=== PATIENT | male | born 1955 | race Caucasian/White ===

== ENCOUNTER 2020-09-09 05:42 | Day surgery (SDC) | payer MEDICARE, OTHER ==
[2020-09-03 16:24] LABS: BASOPHILS # (AUTO) 0.1 X10'3 (0-0.2); EOSINOPHILS # (AUTO) 0.1 X10'3 (0-0.9); EOSINOPHILS % (AUTO) 1.5 % (0-6); LYMPHOCYTES # (AUTO) 1.9 X10'3 (1.1-4.8); MEAN CORPUSCULAR HEMOGLOBIN 33.2 PG (27.0-31.0); MEAN CORPUSCULAR VOLUME 97.7 FL (78-98); MEAN PLATELET VOLUME 7.6 FL (7.4-10.4); MONOCYTES # (AUTO) 0.9 X10'3 (0-0.9); NEUTROPHILS # (AUTO) 4.5 X10'3 (1.8-7.7); NEUTROPHILS % (AUTO) 60.5 % (42-75); PRE OP HEMATOCRIT 54.8 % (42.0-52.0); PRE OP PLATELET COUNT 262 X10'3 (140-440); RED BLOOD COUNT 5.62 X10'6 (4.70-6.10); RED CELL DISTRIBUTION WIDTH 14.5 % (11.5-14.5)
[2020-09-03 16:26] LABS: PRE OP HEMOGLOBIN 18.6 g/dL (14.0-17.9); PRE OP PROTIME 10.6 SECONDS (9.0-12.0)
[2020-09-03 16:29] LABS: ALBUMIN 3.9 G/DL (3.4-5.0); ALBUMIN/GLOBULIN RATIO 1.1 (1.1-1.5); ALKALINE PHOSPHATASE 71 IU/L (46-116); BLOOD UREA NITROGEN 14 MG/DL (7-18); BUN/CREATININE RATIO 16.5 (5.4-32.0); CALCIUM 8.9 MG/DL (8.5-10.1); CHLORIDE 104 MMOL/L (99-107); CREATININE 0.85 MG/DL (0.60-1.10); PRE OP ALT 25 U/L (30-65); PRE OP ANION GAP 7 (8-16); PRE OP AST 14 U/L (10-37); PRE OP BILIRUB, TOTAL 0.7 MG/DL (0.0-1.0); PRE OP GLUCOSE 95 MG/DL (70-104); PRE OP POTASSIUM 4.4 MMOL/L (3.4-5.1); PRE OP SODIUM 140 MMOL/L (135-145); TOTAL CARBON DIOXIDE 29.1 MMOL/L (24-32); TOTAL PROTEIN 7.6 G/DL (6.4-8.2); eGFR 90 ML/MIN
[2020-09-09] VITALS (19 sets, daily range): BP systolic 113–151; BP diastolic 76–99
[~2020-09-09] VITALS: Ht 182.9 cm; Wt 89.6 kg
[~2020-09-09 05:42] MED LIST: DOCUMENT DATE & TIME OF BETA-BLOCKER PO ONE; METO-384 PO; acetaminophen 325mg tablet PO ONE; cefazolin/dext.iso 2gm/100ml IV ONE; celeCOXIB 100mg capsule PO ONE; famotidine 20mg tablet PO ONE; gabapentin 300mg capsule PO ONE; metoclopramide 5 mg/ml inj IV ONE; oxyCODONE SR 10mg (sust. release) tab -2 tabs (20mg) PO ONE; ringers solution, lacted 1,000 ML IV SCH; tranexamic acid 1gm/0.7% sal. 100 ML IV ONE; vancomycin 1,500 MG in NS 300ml IV soln IV ONE
[2020-09-09] MEDS ORDERED: HYDROmorphone 1 mg/ml syringe IV PRN (06:25)
[2020-09-09] MEDS ORDERED: diphenhydrAMINE 25mg capsule PO PRN ×2 (06:25)
[2020-09-09] MEDS ORDERED: magnesium hydroxide 30ml (MOM) UD suspension PO PRN (06:25)
[2020-09-09] MEDS ORDERED: acetaminophen 325mg tablet PO PRN (06:25)
[2020-09-09] MEDS ORDERED: ondansetron/PF 4mg/2ml inj IV PRN ×2 (06:25→07:40)
[2020-09-09] MEDS ORDERED: bisacodyl 10mg suppository rectal RC PRN (06:25)
[2020-09-09] MEDS ORDERED: tranexamic acid inj. 900 MG in normal saline 100ml IV soln 100 ML IV ONE (06:25)
[2020-09-09] MEDS ORDERED: HYDROmorphone inj. 0.5 MG/0.5 ML DISP.SYRIN IV PRN (06:25)
[2020-09-09] MEDS ORDERED: oxyCODONE/APAP 10/325mg tablet PO PRN ×2 (06:25)
[2020-09-09] MEDS ORDERED: ketorolac trometh. 30mg/ml inj. ONE (06:45)
[2020-09-09] MEDS ORDERED: epiNEPHrine 1 mg/ml inj ONE (06:46)
[2020-09-09] MEDS ORDERED: vancomycin 1,000mg inj ONE (06:46)
[2020-09-09] MEDS ORDERED: cloNIDine hcl/PF 100mcg/ml inj ONE (06:46)
[2020-09-09] MEDS ORDERED: ROPIVAcaine 0.5% (5mg/ml) 30ml vial ONE ×3 (06:46→08:49)
[2020-09-09] MEDS ORDERED: BUPIVAcaine/PF 7.5mg/ml (0.75%) 10ml vial ONE (06:58)
[2020-09-09] MEDS ORDERED: MIDAZolam 1mg/ml 10ml vial ONE (06:59)
[2020-09-09] MEDS ORDERED: fentaNYL/PF 50MCG/1 ML 2ML syringe ONE (07:00)
[2020-09-09] MEDS ORDERED: dexamethasone sod phosphate 4mg/ml inj. ONE (07:34)
[2020-09-09] MEDS ORDERED: morphine 2 MG/ML inj. syringe IV PRN (07:40)
[2020-09-09] MEDS ORDERED: ringers solution, lacted 1,000 ML IV SCH (07:40)
[2020-09-09] MEDS ORDERED: morphine 4 MG/ML inj SYRINge IV PRN (07:40)
[2020-09-09] MEDS ORDERED: fentaNYL/PF 50MCG/1 ML 2ML syringe IV PRN ×2 (07:40)
[2020-09-09] MEDS ORDERED: ROPIVAcaine 0.2% (10 MG/5 ML) BOLUS INJECTION ADDCANAL PRN (07:40)
[2020-09-09] MEDS ORDERED: ROPIVAcaine 0.2%/PF PUMP/bolus 545 ML ADDCANAL SCH (07:40)
[2020-09-09] MEDS ORDERED: hydrALAZINE 20mg/ml inj. IV PRN (07:40)
[2020-09-09] MEDS ORDERED: labetalol 20mg/4ml (5mg/ml) syringe IV PRN (07:40)
[2020-09-09] MEDS: multivitamins, therapeutics tablet PO SCH (08:00)
[2020-09-09] MEDS: gabapentin 300mg capsule PO SCH ×3 (08:00→20:31)
[2020-09-09] MEDS: metoprolol succinate 25mg (24-HOUR) SR. Tablet PO SCH (08:00)
[2020-09-09] MEDS: ascorbic acid 500mg tablet PO SCH ×2 (08:00→20:31)
[2020-09-09] MEDS: aspirin 325mg tablet PO SCH (08:30)
--- NOTE | 2020-09-09 09:05 | NUR ---
Received from OR via , accompanied by AnesthesiologistCARBALLO and report given by Anesthesiolgist. PT PRESENTS WITH PIV RIGHT WRIST, DRESSING ON RIGHT KNEE DRY AND INTACT WITH EMERSON DRESSING AND POWDER PACK. Addendum: 09/09/20 at 0913 by Sophie Solorio RN, RN Amended: Links added.
--- NOTE | 2020-09-09 09:10 | NUR ---
CALLED [facility] @0910 FOR RIGHT KNEE. Addendum: 09/09/20 at 0941 by Sophie Solorio RN, RN Amended: Links added.
--- NOTE | 2020-09-09 09:14 | NUR ---
I SANDERSON CHARLIE TO LET THEM KNOW I NEEDED THE ON-Q PUMP. Addendum: 09/09/20 at 0923 by Sophie Solorio RN, RN Amended: Links added.
--- NOTE | 2020-09-09 09:30 | NUR ---
SUNNY BENITES. Addendum: 09/09/20 at 0941 by Sophie Solorio RN RN Amended: Links added.
--- NOTE | 2020-09-09 10:25 | NUR ---
PATIENT HAS MET ALL CRITERIA FOR TRANSFER TO [facility]. VSS. DRESSINGS INTACT. BED LOW, CALL LIGHT PRESENT AND 2 RAILS UP. ARIAS BYNUM PRESENT TO ACCEPT CARE OF PATIENT AND REPORT HAS BEEN CALLED. ALL QUESTIONS ANSWERED TO ACCEPTING RN. Addendum: 09/09/20 at 1037 by Sophie Luu - ARIAS BIANCHI Amended: Links added.
[2020-09-09] MEDS: potassium cl 20mEq in 1/2 NS 1,000 ML IV SCH ×3 (14:25→22:25)
[2020-09-09] MEDS ORDERED: VANCOMYCIN 1,500MG inj. 1,500 MG in normal saline 250ml IV soln 300 ML IV SCH (18:00)
[2020-09-09] MEDS: cefazolin/dext.iso 2gm/100ml 100 ML IV SCH (19:33)
[2020-09-09] MEDS ORDERED: sennosides 8.6mg tablet PO SCH (21:00)
[2020-09-10] MEDS: cefazolin/dext.iso 2gm/100ml 100 ML IV SCH (01:12)
--- NOTE | 2020-09-10 06:09 | NUR ---
Patient in room [facility]. I have received report from Nell BIANCHI and had the opportunity to ask questions and assume patient care.
[2020-09-10 06:12] VITALS: BP 121/88
[2020-09-10 06:12] LABS: BASOPHILS % (AUTO) 0.2 % (0-1); EOSINOPHILS % (AUTO) 0.1 % (0-6); HEMATOCRIT 45.6 % (42.0-52.0); HEMOGLOBIN 15.3 g/dl (14.0-17.9); LYMPHOCYTES % (AUTO) 7.5 % (21-51); MEAN CORPUSCULAR HGB CONC 33.6 g/dL (33.0-36.5); MEAN CORPUSCULAR VOLUME 98.2 FL (78-98); MONOCYTES # (AUTO) 1.6 X10'3 (0-0.9); MONOCYTES % (AUTO) 12.6 % (2-12); NEUTROPHILS # (AUTO) 10.4 X10'3 (1.8-7.7); NEUTROPHILS % (AUTO) 79.6 % (42-75); PLATELET COUNT 230 X10'3 (140-440); RED BLOOD COUNT 4.64 X10'6 (4.70-6.10); RED CELL DISTRIBUTION WIDTH 13.9 % (11.5-14.5)
[2020-09-10 06:21] LABS: ANION GAP 8 (8-16); CHLORIDE 104 MMOL/L (99-107); POTASSIUM 4.5 MMOL/L (3.5-5.1); SODIUM 139 MMOL/L (135-145); TOTAL CARBON DIOXIDE 26.7 MMOL/L (24-32)
[2020-09-10] MEDS: potassium cl 20mEq in 1/2 NS 1,000 ML IV SCH (06:27)
[2020-09-10] MEDS: aspirin 325mg tablet PO SCH (08:33)
[2020-09-10] MEDS: multivitamins, therapeutics tablet PO SCH (08:33)
[2020-09-10] MEDS: metoprolol succinate 25mg (24-HOUR) SR. Tablet PO SCH (08:33)
[2020-09-10] MEDS: ascorbic acid 500mg tablet PO SCH (08:33)
[2020-09-10] MEDS: gabapentin 300mg capsule PO SCH (08:33)
[2020-09-10 10:38] VITALS: BP 89/63
--- NOTE | 2020-09-10 11:15 | NUR ---
Patient discharged to home, discharge instructions given to patient regarding follow up, complications and when to take medications. Patient verbalizes understanding. 20 gauge iv removed from right forearm. Discharged via wheelchair to private vehicle with no complications.
[2020-09-10] MEDS ORDERED: celeCOXIB 100mg capsule PO SCH (20:00)
== END 2020-09-10 11:00 | disposition home or self-care (01) ==
LOC: PAS 05:42 → ORTHO 4S 06:24 → PAS 09-10 11:00
PROVIDERS: ATTEND Orthopaedic Surgery
DX: M17.11 Unilateral primary osteoarthritis, right knee (principal); M21.161 Varus deformity, not elsewhere classified, right knee; G89.18 Other acute postprocedural pain; Z79.899 Other long term (current) drug therapy; Z79.01 Long term (current) use of anticoagulants; Z87.891 Personal history of nicotine dependence
CPT/HCPCS: 27447; 36415; 64448; 73560; 76937; 80051; 80053; 82948; 85025; 85610; 85730; 86885; 86900; 86901; 87081; 97110; 97116; 97161; 97530; C1713; C1776; J0171; J0735; J1100; J1885; J2250; J2405; J2765; J2795; J3010; J3370; J3490; J7040; J7050; J7120; A4215; A7000; G0378; J3480